=== PATIENT | female | born 2000 | race Caucasian/White ===

== ENCOUNTER 2020-08-10 17:10 | Emergency (ER) | payer OTHER, SELFPAY | END 2020-08-10 17:26 | disposition left against medical advice (07) | PROVIDERS: Emergency Provider Registered Nurse; PCP Nurse Practitioner Family | DX: Z53.21 Procedure and treatment not carried out due to patient leaving prior to being seen by health care provider (principal) | CPT/HCPCS: 99199 ==

== ENCOUNTER 2022-10-21 23:07 | Emergency (ER) | payer OTHER, SELFPAY ==
--- NOTE | ~2022-10-21 | CT_ITS ---
CT of the Abdomen and Pelvis: Indication: Abdominal pain Technique: 2.5 mm axial scans were obtained through the abdomen and pelvis following intravenous adm inistration of 100 cc of Omnipaque 350. Dose reduction technique was used on this scan by utilizing a utomated exposure control and iterative reconstruction technique. The dose-length product (DLP) was 4 41.80 mGy-cm. Findings: Scans through the lung bases are unremarkable. The liver, spleen, pancreas, gallbladder, adrenals and kidneys are within normal limits. No evidence of aortic aneurysm. No lymphadenopathy. No bowel obstruction or bowel wall thickening. There is no evidence to suggest acute appendicitis. Images through the pelvis were performed. Urinary bladder unremarkable. Possible small right hydrosal pinx. No other adnexal mass seen. Impression: Possible small right hydrosalpinx or small right ovarian cyst. No other significant findings. Reviewed, dictated and finalized at [facility]. Impression: Possible small right hydrosalpinx or small right ovarian cyst. No other significant findings.
[2022-10-21 23:13] VITALS: BP 130/83; PULSE 98; RESP 20; TEMP 36.8; O2SAT 100
[2022-10-22 01:47] VITALS: BP 126/81; PULSE 97; RESP 11; O2SAT 100
[2022-10-22 01:52] LABS: Basophils Percent Auto 0.3 % (0.2-1.2); Eosinophils Percent Auto 0.2 % (0-4.4); Hematocrit 39.7 % (37.0-47.0); Hemoglobin 13.2 g/dL (12.0-15.0); Immature Granulocyte Absolute 0.03 K/mm3 (0.00-0.031); Immature Granulocyte Percent A 0.2 % (0-0.5); Lymphocytes Absolute Auto 4.43 K/mm3 (0.9-3.2); Lymphocytes Percent Auto 35.4 % (18.3-44.2); Mean Corpuscular HGB Conc 33.2 g/dl (32-36); Mean Corpuscular Hemoglobin 29.9 pg (26-34); Mean Platelet Volume 8.5 fl (7.4-10.4); Monocytes Absolute Auto 0.6 K/mm3 (0.1-0.6); Monocytes Percent Auto 4.8 % (2.6-8.5); Neutrophils Absolute Auto 7.4 K/mm3 (1.3-6.7); Neutrophils Percent Auto 59.1 % (45.5-73.1); Platelet Count Result 308 k/mm3 (150-375); Red Blood Count 4.41 M/mm3 (4.2-5.4); Red Cell Distribution Width 11.4 % (11.5-14.5); White Blood Count 12.5 K/mm3 (4.5-10.0)
[2022-10-22 01:53] LABS: Appearance Urine Clear (Clear); Bilirubin Urine Negative (Negative); Blood Urine Negative (Negative); Color Urine Yellow (Yellow); Glucose Urine UA Negative (Negative); Ketones Urine Negative (Negative); Leukocyte Esterase Ur Negative LEU/UL (Negative); Nitrate Urine Negative (Negative); Protein Urine Negative (Negative); Specific Grav Ur 1.014 (1.001-1.035); Urobilinogen Urine 0.2 mg/dL (<2.0); pH Urine 6.5 (5.0-9.0)
[2022-10-22 02:01] VITALS: BP 133/83; PULSE 85; RESP 12; O2SAT 100
[2022-10-22 02:01] LABS: Alanine Aminotransferase 49 U/L (6-35); Albumin Level 4.8 g/dL (3.5-5.1); Alkaline Phosphatase 66 U/L (38-126); Anion Gap 8 mmol/L (8-16); Aspartate Amino Transferase 36 U/L (14-36); Bilirubin,Total 0.4 mg/dL (0.2-1.3); Blood Urea Nitrogen 13 mg/dL (7-17); Calcium 9.2 mg/dL (8.4-10.2); Carbon Dioxide 27 mmol/L (22-30); Chloride 101 mmol/L (98-107); Estimated CRCL calculation 123 ml/min; Estimated Glomerular Filt Rate > 60; Glucose 103 mg/dL (65-110); Lipase 54 U/L (23-300); Sodium 136 mmol/L (137-145)
[2022-10-22 02:04] LABS: Add Urine Microscopic? NO
[2022-10-22 02:16] VITALS: BP 120/73; PULSE 87; RESP 16; O2SAT 100
[2022-10-22 02:30] VITALS: PULSE 67; RESP 16; O2SAT 100
[2022-10-22 02:31] VITALS: BP 119/64; PULSE 75; RESP 15; O2SAT 100
[2022-10-22] MEDS: SODIUM CHLORIDE 0.9% IV 1,000 ML 999 ML IV CONT (02:34)
[2022-10-22] MEDS: MORPHINE SULFATE (*CRX) 4 MG/ML INJ IV PUSH (02:35)
[2022-10-22] MEDS: ONDANSETRON INJ 4 MG/2 ML VIAL IV PUSH (02:35)
--- NOTE | 2022-10-22 04:34 | ED.GENADULT ---
HPI - General Adult General Chief complaint: Abdominal Pain Stated complaint: abd pain Time Seen by Provider: 10/22/22 01:02 History of Present Illness HPI narrative: Patient is a 21-year-old female who presents the emergency department with chief complaint of abdominal pain. The patient reports she was at work and started having pain in her lower quadrants of her abdomen. Patient reports the pain is now radiating to her back the patient states that she got all that nauseated with this as well patient denies fever denies vaginal discharge denies dysuria denies vomiting Related Data Allergies Allergy/AdvReac Type Severity Reaction Status Date / Time No Known Allergies Allergy Unverified 10/07/17 20:12 Review of Systems Review of Systems: A 10 system review of systems was completed on the patient and is negative except for what is stated in the HPI. Nursing and ancillary documentation was reviewed. Exam Narrative: GENERAL: Well-appearing, well-nourished, and in no acute distress. HEAD: Normocephalic, atraumatic. EYES: PERRLA and EOMI. ENT: Nares clear, no rhinorrhea or epistaxis. Mucous membranes moist. NECK: Supple. CHEST: Clear to auscultation. No respiratory distress. HEART: Regular rate and rhythm. No murmur heard. Normal peripheral pulses. ABDOMEN: Soft, diffuse tenderness to palpation, nondistended, normal active bowel sounds. EXTREMITIES: Normal range of motion. No edema. SKIN: Warm, dry, no rash. NEURO: No focal deficits. Alert and oriented x3. PSYCH: Normal mood and affect. Course Course Emergency Course: Differential diagnosis includes appendicitis, ovarian cyst, diverticulitis, colitis Laboratory studies were obtained which showed a white blood cell count of 12.5 electrolytes are within normal limits urinalysis showed no evidence of UTI CT scan of the abdomen pelvis showed evidence of a possible ruptured right ovarian cyst Vital Signs Vital signs: Vital Signs Temperature 36.8 C 10/21/22 23:13 Pulse Rate 98 10/21/22 23:13 Respiratory Rate 20 10/21/22 23:13 Blood Pressure 130/83 10/21/22 23:13 Pulse Oximetry 100 10/21/22 23:13 Oxygen Delivery Room Air 10/21/22 23:13 Temperature 36.8 C 10/21/22 23:13 Pulse Rate 75 10/22/22 02:31 Respiratory Rate 15 10/22/22 02:31 Blood Pressure 119/64 10/22/22 02:31 Pulse Oximetry 100 10/22/22 02:31 Oxygen Delivery Room Air 10/21/22 23:13 Medical Decision Making Vital Signs Vital Signs: Vital Signs Temperature 36.8 C 10/21/22 23:13 Pulse Rate 98 10/21/22 23:13 Respiratory Rate 20 10/21/22 23:13 Blood Pressure 130/83 10/21/22 23:13 Pulse Oximetry 100 10/21/22 23:13 Oxygen Delivery Room Air 10/21/22 23:13 Temperature 36.8 C 10/21/22 23:13 Pulse Rate 75 10/22/22 02:31 Respiratory Rate 15 10/22/22 02:31 Blood Pressure 119/64 10/22/22 02:31 Pulse Oximetry 100 10/22/22 02:31 Oxygen Delivery Room Air 10/21/22 23:13 Lab Data 10/22/22 01:45 10/22/22 01:45 Labs: Lab Results 10/22/22 10/22/22 10/22/22 Range/Units 01:45 01:45 01:45 WBC 12.5 H (4.5-10.0) K/mm3 RBC 4.41 (4.2-5.4) M/mm3 Hgb 13.2 (12.0-15.0) g/dL Hct 39.7 (37.0-47.0) % MCV 90.0 (80-100) fl MCH 29.9 (26-34) pg MCHC 33.2 (32-36) g/dl RDW 11.4 L (11.5-14.5) % Plt Count 308 (150-375) k/mm3 MPV 8.5 (7.4-10.4) fl Immature Gran % (Auto) 0.2 (0-0.5) % Neut % (Auto) 59.1 (45.5-73.1) % Lymph % (Auto) 35.4 (18.3-44.2) % [place] % (Auto) 4.8 (2.6-8.5) % Eos % (Auto) 0.2 (0-4.4) % Baso % (Auto) 0.3 (0.2-1.2) % Lymph # (Auto) 4.43 H (0.9-3.2) K/mm3 [place] # (Auto) 0.6 (0.1-0.6) K/mm3 Eos # (Auto) 0.0 (0-0.3) K/mm3 Baso # (Auto) 0.0 (0.0-0.1) K/mm3 Abs Immat Gran (auto) 0.03 (0.00-0.031) K/mm3 Absolute Neuts (auto) 7.4 H (1.3-6.7) K/mm3 Absolute Nucleated RBC 0.0 (0.0-0.012)
[2022-10-22 04:47] VITALS: BP 120/69; PULSE 76; RESP 16; O2SAT 98
== END 2022-10-22 04:48 | disposition home or self-care (01) ==
PROVIDERS: Emergency Provider Emergency Medicine; PCP Emergency Medicine
DX: N83.201 Unspecified ovarian cyst, right side (principal)
CPT/HCPCS: 36415; 74177; 80053; 81003; 81025; 83690; 85025; 96361; 96374; 96375; 99284; J2270; J2405; J7030; Q9967

== ENCOUNTER 2024-03-11 20:53 | Emergency (ER) | payer OTHER, SELFPAY ==
--- NOTE | ~2024-03-11 | XR_ITS ---
EXAMINATION: XR chest 2V DATE: 03/11/2024 22:21 INDICATION: Chest pain TECHNIQUE: PA and lateral views of the chest were obtained. COMPARISON: None FINDINGS: The lungs are clear with no focal airspace opacities, pulmonary edema, pleural effusion or pneumothor ax. The cardiomediastinal silhouette is normal. Visualized bones and soft tissues are unremarkable. IMPRESSION: 1. No acute cardiopulmonary disease. Reviewed, dictated and finalized at location A.
--- NOTE | 2024-03-11 21:00 | ECG_ITS ---
Test Date: 2024-03-11 21:05:33 Measurements Intervals [place] Rate: 82 P: 40 SD: 153 QRS: 27 QRSD: 77 T: 14 QT: 360 QTc: 421 Interpretive Statements SINUS RHYTHM NORMAL ELECTROCARDIOGRAM No previous ECG available for comparison Electronically Signed On 03-12-2024 09:30:05 CDT by [place] M.D.
[2024-03-11 21:06] VITALS: BP 116/79; PULSE 89; RESP 18; TEMP 36.8; O2SAT 100
[2024-03-11 21:17] LABS: Basophils Percent Auto 0.4 % (0.2-1.2); Eosinophils Absolute Auto 0.1 K/mm3 (0-0.3); Eosinophils Percent Auto 0.6 % (0-4.4); Hematocrit 37.6 % (37.0-47.0); Hemoglobin 12.6 g/dL (12.0-15.0); Immature Granulocyte Absolute 0.03 K/mm3 (0.00-0.031); Immature Granulocyte Percent A 0.3 % (0-0.5); Lymphocytes Absolute Auto 4.77 K/mm3 (0.9-3.2); Lymphocytes Percent Auto 42.4 % (18.3-44.2); Mean Corpuscular HGB Conc 33.5 g/dl (32-36); Mean Corpuscular Hemoglobin 30.4 pg (26-34); Mean Corpuscular Volume 90.8 fl (80-100); Mean Platelet Volume 8.5 fl (7.4-10.4); Monocytes Absolute Auto 0.6 K/mm3 (0.1-0.6); Neutrophils Absolute Auto 5.8 K/mm3 (1.3-6.7); Neutrophils Percent Auto 51.3 % (45.5-73.1); Platelet Count Result 310 k/mm3 (150-375); Red Blood Count 4.14 M/mm3 (4.2-5.4); Red Cell Distribution Width 11.7 % (11.5-14.5); White Blood Count 11.3 K/mm3 (4.5-10.0)
[2024-03-11 21:28] LABS: Alanine Aminotransferase 56 U/L (6-35); Albumin Level 4.3 g/dL (3.5-5.1); Alkaline Phosphatase 74 U/L (38-126); Anion Gap 13 mmol/L (4-12); Aspartate Amino Transferase 35 U/L (14-36); Bilirubin,Total 0.2 mg/dL (0.2-1.3); Blood Urea Nitrogen 12 mg/dL (7-17); Calcium 8.5 mg/dL (8.4-10.2); Carbon Dioxide 23 mmol/L (22-30); Chloride 101 mmol/L (98-107); Estimated CRCL calculation 127 ml/min; Estimated Glomerular Filt Rate > 60; Glucose 89 mg/dL (65-110); Lipase 57 U/L (23-300); Potassium 3.7 mmol/L (3.4-5.0); Prothrombin Time 13.2 Seconds (11.1-14.7); Sodium 137 mmol/L (137-145)
[2024-03-11 21:29] LABS: Partial Thromboplastin Time 28.3 Seconds (22.3-36.8)
[2024-03-11 21:40] LABS: Troponin I < 0.012 ng/mL (0.000-0.034)
[2024-03-12 02:43] VITALS: BP 125/84; PULSE 78; RESP 18; TEMP 36.3; O2SAT 100
[2024-03-12 04:32] VITALS: BP 124/92; PULSE 75; RESP 16; O2SAT 100
[2024-03-12 06:30] VITALS: BP 116/88; PULSE 67; RESP 16; O2SAT 100
[2024-03-12 07:14] VITALS: BP 111/78; PULSE 79; RESP 19; TEMP 36.4; O2SAT 100
--- NOTE | 2024-03-12 07:19 | ED.CHESTPAIN ---
HPI - Chest Pain General Chief Complaint: Chest Pain Stated Complaint: SOB, CP Time Seen by Provider: 03/12/24 06:50 History of Present Illness HPI narrative: [age] female presents to the emergency department for evaluation for chest pain. Patient starts the chest pain started at 10:00 a.m. yesterday. Patient states she was actually getting an echocardiogram when she had onset of the pain. Patient reports that she has daily chest pain. Patient states that reason she presented to the emergency department with she was concerned that the chest pain was getting worse. At time of initial evaluation patient states the chest pain has significantly improved. Patient denies any current shortness breath and patient is resting comfortably. Related Data Allergies Allergy/AdvReac Type Severity Reaction Status Date / Time latex Allergy Hives Verified 03/12/24 07:15 aspirin AdvReac Unknown Verified 03/12/24 07:15 Review of Systems Review of Systems: All systems reviewed & are unremarkable except as noted in HPI and below Exam Narrative: APPEARANCE: Well appearing, no pain, no distress, well-nourished. HEAD: normocephalic, atraumatic. EYES: PERRLA/EOMI, conjunctivae clear. NOSE: Normal no drainage EARS:TMS clear with good light reflex. THROAT: Pharynx clear, no exudate. NECK: Supple. No adenopathy, no masses. RESPIRATORY: Airway patent, respirations nonlabored. Clear to auscultation bilaterally, no rales, rhonchi, wheezing. CARDIOVASCULAR: Regular rate and rhythm without murmurs rubs or gallops. ABDOMINAL: Soft, nontender, nondistended, normal bowel sounds MUSCULOSKELETAL: Moves all extremities. Strength/ROM intact, No edema, No calf tenderness. NEURO: Alert. Cranial nerves II through XII intact. Grossly intact SKIN: Warm, dry. Normal Color Course Course Emergency Course: Patient was encouraged to have close follow-up with her primary care physician Vital Signs Vital signs: Vital Signs Temperature 98.2 F 03/11/24 21:06 Pulse Rate 89 03/11/24 21:06 Respiratory Rate 18 03/11/24 21:06 Blood Pressure 116/79 03/11/24 21:06 Pulse Oximetry 100 03/11/24 21:06 Temperature 97.6 F 03/12/24 07:14 Pulse Rate 83 03/12/24 08:20 Respiratory Rate 16 03/12/24 08:20 Blood Pressure 113/76 03/12/24 08:20 Pulse Oximetry 98 03/12/24 08:20 MDM - Chest Pain MDM Narrative Medical decision making narrative: 23-year-old female presenting to the emergency department for evaluation for chest pain. Patient states the chest pain has improved. Patient states that she does have daily chest pain. At time of evaluation patient is in no distress. Patient is afebrile but does have a leukocytosis of 11.3. Patient has no acute abnormalities on her CMP troponin was negative. Lipase was negative. Chest x-ray shows no acute cardiopulmonary disease. Patient states this pain is her typical chest pain and patient is currently being worked up as outpatient. No evidence ACS workup and patient is PERC negative. Patient was encouraged to continue have close outpatient follow-up. Differential Diagnosis Differential diagnosis: Likely fracture of rib, pneumothorax, stable angina, costochondritis, chest pain and biliary colic Lab Data Attestation: I reviewed the patient's lab results. 03/11/24 21:11 03/11/24 21:11 Labs: Lab Results 03/11/24 03/12/24 Range/Units 21:11 07:21 WBC 11.3 H (4.5-10.0) K/mm3 RBC 4.14 L (4.2-5.4) M/mm3 Hgb 12.6 (12.0-15.0) g/dL Hct 37.6 (37.0-47.0) % MCV 90.8 (80-100) fl MCH 30.4 (26-34) pg MCHC 33.5 (32-36) g/dl RDW 11.7 (11.5-14.5) % Plt Count 310 (150-375) k/mm3 MPV 8.5 (7.4-10.4) fl Immature Gran % (Auto) 0.3 (0-0.5) % Neut % (Auto) 51.3 (45.5-73.1) % Lymph % (Auto) 42.4 (18.3-44.2) % [place] % (Auto) 5.0 (2.6-8.5) % Eos % (Auto) 0.6 (0-4.4) % Baso % (Auto) 0.4 (0.2-1.2) % Lymph # (Au
[2024-03-12] MEDS: KETOROLAC 15 MG/ML VIAL (*BKC) IV PUSH (07:33)
[2024-03-12 07:47] LABS: Troponin I < 0.012 ng/mL (0.000-0.034)
[2024-03-12 08:20] VITALS: BP 113/76; PULSE 83; RESP 16; O2SAT 98
== END 2024-03-12 08:22 | disposition home or self-care (01) ==
PROVIDERS: Student in an Organized Health Care Education/Training Program; Emergency Provider Emergency Medicine; PCP Emergency Medicine
DX: R07.9 Chest pain, unspecified (principal)
CPT/HCPCS: 36415; 71046; 80053; 83690; 84484; 85025; 85610; 85730; 93005; 96374; 99284; J1885